=== PATIENT | male | born 1940 | race Caucasian/White ===

== ENCOUNTER 2017-03-27 11:15 | Emergency (ER) | payer MEDICARE, OTHER ==
[~2017-03-27] VITALS: Ht 180.3 cm; Wt 88.6 kg
[2017-03-27 11:19] VITALS: BP 182/81; PULSE 76; RESP 16; O2SAT 93
--- NOTE | 2017-03-27 11:56 | ED.REPORT ---
HPI-Extremity Problem Upper Date of Service Mar 27, 2017 ED Provider: Elia Barron MD The pt is a 76 y/o right-hand dominant male with a hx of HTN who [facility] right [facility] injury while using an electric drill today. The pt [facility] the [facility] stating [facility] had a fracture and recommended he go to the ED. He denies hx of right hand injuries and surgeries. Nursing Notes Stated Complaint: POSS BROKEN RIGHT HAND/[facility] Chief Complaint: Extremity Trauma Nursing Notes Reviewed: Yes ([employer], [employer] not reconciled) Allergies: Coded Allergies: morphine (Verified Adverse Reaction, Severe, Hallucinations, 05/03/09) Uncoded Allergies: WALNUTS (Allergy, Unknown, SEVERE CHEST PAIN, 04/10/06) PENICILLEN (Allergy, 08/31/12) Morphine (Adverse Reaction, Severe, Hallucinations, 12/30/04) General Time Seen by MD: 12:09 Chief Complaint Finger injury right 1 Hx Obtained From: Patient Arrived By: Walk-in Onset Occurred: 5 - 8 hours ago Symptom Duration: Since onset Caused by: Blow Location: : Finger right 1 Quality: Painful Severity: Current: Moderate Severity: Maximum: Moderate Recent Healthcare: Recent doctor visit Past Medical History Past Medical History Reports: Hypertension Past Surgical History Reports: Appendectomy Smoking History Current Every Day Smoker Social History Alcohol Use: Denies alcohol use Ambulatory Status Independent Review of Systems Musculoskeletal: Reports: Extremity pain (right thumb pain) Complete sys rev & neg: except as marked. Physical Exam Initial Vital Signs Vital Signs (First) Date Time Temp Pulse Resp B/P Pulse Ox O2 Delivery O2 Flow Rate FiO2 03/27/17 11:19 36.1 76 16 182/81 93 Room Air Initial VS: Reviewed, Vital signs normal, Vital signs abnormal (HTN) Head / Eyes: Atraumatic, Normocephalic Neck: Supple, Non-tender, Full range of motion Cardiovascular: Regular rate & rhythm, Heart sounds normal, Intact distal pulses Abdomen / GI: Soft, Non-tender, No guarding, No rebound, No distention Lower Extremities: Vascular intact, Neuro intact, No swelling, No tenderness Skin: Warm, Dry, No cyanosis Neurologic: Alert, Oriented, Nonfocal General/Constitutional: Awake, Alert, No acute distress, Well appearing, Cooperative Respiratory / Chest: Atraumatic, Breath sounds = bilat, No respiratory distress , No rales, No rhonchi, No wheezing Diminished Breath Sounds: Positive: Decreased bilateral Wrist / Hand: Atraumatic, No swelling, No snuffbox tenderness, Neurologic intact, Vascular intact Right Thumb: Positive: Ecchymosis present, ROM reduced Procedures Splint Application - Fx Mgt Splint Application- Fx Mgt: Thumb spica Time: 13:52 Procedure Performed by: Senior Mechanical Estimator Precise Anatomic Location: Right thumb Definitive Fracture Care: Splint Post-Procedure / Complications: Cap refill normal, Post splint vascular nl, Post splint neuro nl, Condition improved, Tolerated procedure well, Patient stable Re-Eval/Medical Decision Med Decision/Clinical Course This is a 76-year-old male comes over from the [facility] clinic with a injury to the right thumb, claiming he had x-rays and was referred to the emergency department. Thumb, is having pain in the low bit of bruising. He declines pain medicine, denies some anticoagulants, denies prior head injury, denies numbness weakness paresthesias and has no complaints. On exam has some ecchymosis along the thumb, and some decreased range of motion , but no gross deformity, thumb is neurovascularly intact, his maximal tenderness of the proximal interphalangeal joint, he has pain with any attempted to "stress laxity, enough so that I was unable to really assess for ligamentous laxity. He has decreased flexion and range of motion secondary to pain. He has no anatomical snuffbox tenderness. Radiographs demonstrate an intra-articular proximal, small phalanx fracture. Patient was splinted with situation and sensation remain intact. He declines pain medicine will take Tylenol. Referral to the on-call orthopedist for follow -up, although he may use the following [facility] if he desires. He is discharged in stable condition Source of Hx: Old records Re-Evaluation/Progress : Time of Eval: 01:55 Re-Evaluation/Progress Note: Rechecked pt. Discussed imaging results, diagnosis and plan to discharge. Pt understands and agrees with the plan. F/U instruction and RTER warning given. All questions addressed. Differential Diagnosis: Positive: Fracture, Negative: Abrasion, Abscess, Arterial occlus/ischemia, Cellulitis, Clavicle fracture, Colles' fracture, Humerus fracture, Metacarpal fracture, Muscle spasm , Nail bed laceration, Neurovascular injury, Open fracture Counseled Regarding: Diagnosis, Need for follow-up, When/why to return to ED Discharge & Departure Impression: Primary Impression: Thumb fracture Encounter type: initial encounter Fracture type: closed Phalanx: proximal Fracture alignment: displaced Laterality: right Qualified Code: S62.511A - Displaced fracture of proximal phalanx of right thumb, initial encounter for closed fracture Disposition: Home Discharge Condition All VS Reviewed: Yes Condition: Stable Additional Instructions: 1. There is an intra-articular fracture at the base of the proximal pharynx of the right thumb. 2. Keep the thumb splinted initially. 3. Call for an appointment with orthopedist. He can follow-up through the CT, or if you looking for a local provider you can follow-up with Dr. Rodas. Call for an appointment. 4. Take tylenol 1000mg three times a day for pain as needed. 5. Return if new or worsening symptoms. Referrals: [facility] (PCP) Alfred Rodas MDibe Attestation Portions of this note were transcribed by Manasa Hitchcock. I,, personally performed the history,physical exam and medical decision-making;I reviewed and confirmed the accuracy of the information in the transcribed note. Signed by Nick Lopez. 03/27/17 copies to: [facility]; Alfred Rodas MD, Matthew F MD Mar 27, 2017 11:56 Manasa Hitchcock Mar 27, 2017 13:03
--- NOTE | 2017-03-27 13:18 | DRSVH ---
PROCEDURE: X-RAY RIGHT HAND, MINIMUM THREE VIEWS ([id number]) INDICATIONS: right hand pain TECHNIQUE: 3 views of the hand(s) acquired. COMPARISON: None. FINDINGS: Bones: There is a mildly displaced, intra-articular fracture seen involving the base of the proximal phalanx of the thumb. No additional fractures or dislocations. Carpal bones are normally aligned. Degenerative changes are seen throughout, which are most prominent involving the 1st carpometacarpal joint. Degenerative changes are also seen involving the distal interphalangeal joints. Several area s of bone cyst formation are seen, including involving the ulnar styloid and the radial aspect of the carpus. Soft tissues: Associated soft tissue swelling is seen. IMPRESSION: Intra-articular fracture seen of the base of the proximal phalanx of the thumb. Relatively prominent degenerative changes are seen. Dictated by: Roberto Morin M.D. on 03/27/2017 at 13:14 Approved by: Roberto Morin M.D. on 03/27/2017 at 13:16
[2017-03-27 14:33] VITALS: BP 170/84; PULSE 65; RESP 20; O2SAT 100
== END 2017-03-27 14:34 | disposition home or self-care (01) ==
LOC: SED 11:15
DX: S62.511A Displaced fracture of proximal phalanx of right thumb, initial encounter for closed fracture (principal); W29.8XXA Contact with other powered hand tools and household machinery, initial encounter; Y93.89 Activity, other specified; Y92.009 Unspecified place in unspecified non-institutional (private) residence as the place of occurrence of the external cause; Y99.8 Other external cause status; I10 Essential (primary) hypertension; F17.200 Nicotine dependence, unspecified, uncomplicated